=== PATIENT | female | born 1965 | race African-American/Black ===

== ENCOUNTER 2022-01-07 10:57 | Emergency (ER) | payer MEDICAID ==
[~2022-01-07] VITALS: Ht 167.6 cm; Wt 75.0 kg
[2022-01-07 11:07] VITALS: BP 136/90
== END 2022-01-07 13:31 | disposition left against medical advice (07) ==
LOC: ER 10:57
DX: Z53.21 Procedure and treatment not carried out due to patient leaving prior to being seen by health care provider (principal)